=== PATIENT | female | born 1965 | race Caucasian/White ===

== ENCOUNTER 2017-05-22 12:19 | Emergency (ER) | payer MEDICARE ==
[~2017-05-22] VITALS: Ht 154.9 cm; Wt 124.7 kg
[~2017-05-22 12:19] MED LIST: AMITRIPTYLINE 550 MG PO; CELECOXIB200 MG PO; CYCLOBENZAPRINE10 M1; DICLOFENAC 50MG50 MG PO; FLUOXETINE HYDR20 MG PO; HYDROCODONE-APA1 TA1 PO; HYDROXYZINE HYD25 M1; JANUVIA100 MG PO; LEVOTHYROXIN0.125 M1 NG; LYRICA200 MG PO; OTEZLA30 MG PO; PREDNISONE5 MG PO; TIZANIDINE HCL2 MG PO
--- OUTSIDE RECORDS SUMMARY | 2017-05-22 12:34 | External Medical Summary Rpt ---
Author Author [place] [facility] [facility] Address Unknown Phone Unavailable Care Team Providers Care Trolley Car Mechanic Name Role Phone JOSELO SORTO PCP [phone] Encounter TOMAS CARVER [id number] Date(s): 04/28/17 - 04/28/17 [facility] [address] [place] [address]- [phone] Discharge Disposition: OP Self Care or Home Attending Physician: ABHINAV HILL MD-URO Admitting Physician: ABHINAV HILL MD-URO Referring Physician: ABHINAV HILL MD-URO Reason for Visit No data available for this section Vital Signs No data available for this section Problem List Condition Effective Status Health Informant Dates Status ASTHMA(Confi Active rmed) anemia(Confi Active rmed) Arthritis(Co Active nfirmed) b12 Active deficiency(C onfirmed) Back Active problem(Conf irmed) Diabetes Active mellitus(Con firmed) Hypertension Active (Confirmed) Kidney Active stone(Confir med) Neuropathy(C Active onfirmed) Rash(Confirm Active ed) Thyroid Active disease(Conf irmed) Urgency/mild Active incontinence (Confirmed) Urinary Active tract infection(Co nfirmed) Allergies, Adverse Reactions, Alerts Substance Reaction Severity Status morphine Active Medications adalimumab (Humira) 40mg injections one every other week, Refills: 0 albuterol (ProAir HFA) inhaler as needed, Refills: 0 amitriptyline 150mg daily at night, Refills: 0 cyanocobalamin (Vitamin B-12) 1ml 1 time a week, Refills: 0 fluoxetine (Prozac) 60mg daily, Refills: 0 levothyroxine (Synthroid) 1.25 mg daily, Refills: 0 loratadine (Claritin) 10mg daily, Refills: 0 multivitamin one daily, Refills: 0 multivitamin with iron (Iron-150) one 65mg daily, Refills: 0 Non Formulary (Non Formulary Medication) triacimalene niastatin as needed for psorasis, Refills: 0 olmesartan (Benicar) Refills: 0 olmesartan (Benicar) 40mg daily, Refills: 0 omeprazole (Prilosec) 40mg daily, Refills: 0 pimecrolimus topical (Elidel) cream as needed for psorasis, Refills: 0 potassium acetate 65mg daily, Refills: 0 pregabalin (Lyrica) 150mg 2 times a day, Refills: 0 sitagliptin (Januvia) 100mg daily, Refills: 0 Results No data available for this section Immunizations No data available for this section Procedures No data available for this section Social History Social History Response Type Tobacco Years of Use: 35. Packs/Tins Daily: 1. Second Hand Smoke Exposure: No. Smoking Status Current some day smoker Assessment and Plan No data available for this section Hospital Discharge Instructions No data available for this section
--- OUTSIDE RECORDS SUMMARY | 2017-05-22 12:34 | External Medical Summary Rpt | CCD ---
Author Author , ANITA HOWARD Address Unknown Phone [email or web address] Care Team Providers Care Roaster Operator Name Role Phone VEL GUAJARDO, Unavailable Unavailable VEL GUAJARDO J, Unavailable Unavailable Nadeem WARD [facility] Unavailable Unavailable [facility], [facility] AUDRA STONE, Unavailable Unavailable AUDRA STONE Purpose Continuity of Care Document - 10-28-2008 through 2016 Problems Code Diagnosis DOS Provider Status 3829 UNSPECIFIED 12-03-2008 [facility] OTITIS AUDRA Fermin MEDIA 00385 ASTHMA, 12-03-2008 [facility], UNSPECIFIED AUDRA Fermin , UNSPECIFIED STATUS 5198 OTHER 12-03-2008 [facility] DISEASES OF AUDRA Fermin RESPIRATORY SYSTEM NEC 13437 DIAB W/O 11-25-2008 [facility] COMP TYPE AUDRA Fermin II/UNS NOT STATED UNCNTRL 3558 UNSPECIFIED 11-25-2008 AUDRA STONE MONONEURITI S OF LOWER LIMB 7242 LUMBAGO 11-25-2008 AUDRA STONE 7291 UNSPECIFIED 11-25-2008 [facility] MYALGIA AUDRA Fermin AND MYOSITIS 57389 MIGRAINE 11-11-2008 [facility] UNSP W/O VEL Longo INTRACT W/O STATUS MIGRAINOSUS 6961 OTHER 11-11-2008 [facility], PSORIASIS VEL Longo AND SIMILAR DISORDERS 14079 OTHER 11-11-2008 [facility] MALAISE AND VLE Longo FATIGUE 2449 UNSPECIFIED 10-28-2008 [facility] ISM 2724 OTHER AND 10-28-2008 [facility] HYPERLIPIDE LINDA 32987 OTHER 10-28-2008 [facility] INVOL[facility]ING HOSPITAL HEAD AND NECK 48729 ABDOMINAL 10-28-2008 [facility] [place] PAIN OTHER RADIOLOGY SPECIFIED SITE Allergies, Adverse Reactions, Alerts Type Drug Allergy Adverse Reaction to Substance Substance Reaction Severity Morphine Unknown Unknown Medications Na ND Rx Da Fi Fi Am Da Di Ph RX Ph St me C No te ll ll ou ys ag ar # ys at rm s nt no ma ic us Or Da si cy ia de te s n re d AD 49 08 0 No AC 28 -0 EL 10 4- Lo 40 20 ng TD 01 13 er AP 0 Ac ti AL ve LI 00 08 0 No DO 40 -0 CA 94 4- Lo IN 27 20 ng E 90 13 er HC 2 L Ac 1% ti ve AL Vital Signs 03-11-2013 23:16 Name Value Interpretat Reference Comment ion Range Body 98.4 [degF] Temperature BP 75 mm[Hg] Diastolic BP Systolic 149 mm[Hg] Heart 76 /min Rate/Pulse O2% 98 % Respiratory 16 /min Rate 03-11-2013 22:38 Name Value Interpretat Reference Comment ion Range BP 77 mm[Hg] Diastolic BP Systolic 153 mm[Hg] Heart 105 /min Rate/Pulse O2% 99 % Respiratory 20 /min Rate Procedures Procedure DOS Code Location Performer Comment INJECTION J0696 [facility], 9 AUDRA EASTO M M NE SODIUM PER 250 MG GLUC BLD 71750 [facility], GLUC MNTR 9 AUDRA ZHU DEV M M CLEARED FDA SPEC HOME USE HEMOGLOBI [address] FRANCES[place] A1C LIPID [address] PELVIS [address] [facility] W/O [address] [place] [address] MATERIAL GENERAL [address] [place] [address] [facility] [place] ED, ABDOMEN 9 RADIOLOGY J W/O CONTRAST MATERIAL COLLECTIO 60322 [facility] VENOUS [address] [place] [address] VENIPUNCT URE Encounters Encounter Start End Date Code Location Performer Type Date Emergency AN Greenberg MD (ER) 3 22:14 3 23:17 [facility] OFFICE 65305 [facility] ST[facility] OUTPATIEN 9 9 AUDRA Luo VISIT M M 15 MINUTES OFFICE 67939 [facility] 9 AUDRA Luo VISIT M M 10 MINUTES OFFICE 25388 [facility] GUAJ[facility] 9 9 VEL Luo VISIT 10 MINUTES [facility] - 9 9 [facility] T
--- OUTSIDE RECORDS SUMMARY | 2017-05-22 12:34 | External Medical Summary Rpt ---
Author Author TOMAS [facility] Organization [facility] Address Unknown Phone Unavailable Care Team Providers Care Systems Lead Name Role Phone PATIENCEJOSELO LONGO PCP [phone] Encounter TOMAS CARVER [id number] Date(s): 08/17/16 - 10/25/16 [facility] [address] [place] [address]- Discharge Disposition: OP Self Care or Home Attending Physician: JASON MARTINS MD Admitting Physician: JASON MARTINS MD Referring Physician: JASON MARTINS MD Reason for Visit XXXX Vital Signs No data available for this [...] needed for psorasis, Refills: 0 olmesartan (Benicar) 40mg daily, Refills: 0 olmesartan (Benicar) Refills: 0 omeprazole (Prilosec) 40mg daily, Refills: [...]
--- OUTSIDE RECORDS SUMMARY | 2017-05-22 12:34 | External Medical Summary Rpt ---
Author Author [place] [facility] Address Unknown Phone Unavailable Care Team Providers Care Painter Rough Name Role Phone JOSELO SORTO PCP [phone] Encounter TOMAS CARVER [id number] Date(s): 04/28/17 - 04/28/17 [facility] [address] [place] [address]- [phone] Discharge Disposition: OP Self Care or Home [...]
--- OUTSIDE RECORDS SUMMARY | 2017-05-22 12:34 | External Medical Summary Rpt ---
Author Author TOMAS [facility] Organization [facility] Address Unknown Phone Unavailable Care Team Providers Care Per Diem Rn Name Role Phone PATIENCEJOSELO LONGO PCP [phone] Encounter TOMAS CARVER [id number] Date(s): 08/17/16 - 10/25/16 [facility] [address] [place] [address]- [phone] Discharge Disposition: OP Self Care or Home [...]
--- OUTSIDE RECORDS SUMMARY | 2017-05-22 12:34 | External Medical Summary Rpt | CCD ---
Author Author , ANITA HOWARD Address Unknown Phone [email or web address] Care Team Providers Care Storehouse Clerk Name Role Phone VEL GUAJARDO, Unavailable Unavailable VEL GUAJARDO J, Unavailable Unavailable Nadeem WARD [facility] Unavailable Unavailable [facility] AUDRA STONE, Unavailable Unavailable AUDRA STONE Purpose Continuity of Care Document - 10-28-2008 through 2016 Problems Code Diagnosis DOS Provider Status 3829 UNSPECIFIED 12-03-2008 [facility] OTITIS AUDRA Fermin MEDIA 60870 ASTHMA, 12-03-2008 [facility], UNSPECIFIED AUDRA Fermin , UNSPECIFIED STATUS 5198 OTHER 12-03-2008 [facility] DISEASES OF AUDRA Fermin RESPIRATORY SYSTEM NEC 07309 DIAB W/O 11-25-2008 [facility] COMP TYPE AUDRA Fermin II/UNS NOT STATED UNCNTRL 3558 UNSPECIFIED 11-25-2008 AUDRA STONE MONONEURITI S OF LOWER LIMB 7242 LUMBAGO 11-25-2008 AUDRA STONE 7291 UNSPECIFIED 11-25-2008 [facility] MYALGIA AUDRA Fermin AND MYOSITIS 85046 MIGRAINE 11-11-2008 [facility] UNSP W/O VEL Longo INTRACT W/O STATUS MIGRAINOSUS 6961 OTHER 11-11-2008 B[facility]T, PSORIASIS VEL Longo AND SIMILAR DISORDERS 50395 OTHER 11-11-2008 [facility] MALAISE AND VEL Longo FATIGUE 2449 UNSPECIFIED 10-28-2008 [facility] ISM 2724 OTHER AND 10-28-2008 [facility] HYPERLIPIDE LINDA 42379 OTHER 10-28-2008 [facility] HEAD AND NECK 08005 ABDOMINAL 10-28-2008 [facility] [place] PAIN OTHER RADIOLOGY [...] NE SODIUM PER 250 MG GLUC BLD 86664 [facility] STONE, GLUC MNTR 9 AUDRA ZHU DEV M M CLEARED FDA SPEC HOME USE HEMOGLOBI [address] FRANCES[place] A1C LIPID [address] PELVIS [address] [facility] W/O [address] [place] [address] MATERIAL GENERAL [address] [place] [address] [facility] [place] ED, ABDOMEN 9 RADIOLOGY J W/O CONTRAST MATERIAL COLLECTIO 90289 [facility] VENOUS [address] [place] [address] VENIPUNCT URE Encounters Encounter Start End Date Code Location Performer Type Date Emergency AN Greenberg MD (ER) 3 22:14 3 23:17 [facility] OFFICE 64091 [facility] STONE OUTPATIEN 9 9 AUDRA Luo VISIT M M 15 MINUTES OFFICE 83609 [facility] 9 AUDRA Luo VISIT M M 10 MINUTES OFFICE 42539 [facility] 9 9 VEL Luo VISIT 10 MINUTES [facility] [place] - 9 9 [facility] T
--- OUTSIDE RECORDS SUMMARY | 2017-05-22 12:35 | External Medical Summary Rpt | CCD ---
Demographics Preferred Language South [place] Marital Status Unknown Pentecostal Affiliation Unknown Race Unknown Ethnic Group Unknown Author Author , BRIANNA HOWARD Address Unknown Phone Immunization No patient found.
--- OUTSIDE RECORDS SUMMARY | 2017-05-22 12:35 | External Medical Summary Rpt | CCD ---
Author Author , ANITA Brewer ANITA Address Unknown Phone [email or web address] Care Team Providers Care Swinging Cut Off Saw Operator Name Role Phone VEL GUAJARDO, Unavailable Unavailable VEL GUAJARDO J, Unavailable Unavailable Nadeem WARD [facility] Unavailable Unavailable HOSPITAL, [facility] AUDRA STONE, Unavailable Unavailable AUDRA STONE Purpose Continuity of Care Document - 10-28-2008 through 2016 Problems Code Diagnosis DOS Provider Status 3829 UNSPECIFIED 12-03-2008 [facility] OTITIS AUDRA Fermin MEDIA 99927 ASTHMA, 12-03-2008 [facility], UNSPECIFIED AUDRA Fermin , UNSPECIFIED STATUS 5198 OTHER 12-03-2008 [facility] DISEASES OF AUDRA Fermin RESPIRATORY SYSTEM NEC 61801 DIAB W/O 11-25-2008 [facility], COMP TYPE AUDRA Fermin II/UNS NOT STATED UNCNTRL 3558 UNSPECIFIED 11-25-2008 AUDRA STONE MONONEURITI S OF LOWER LIMB 7242 LUMBAGO 11-25-2008 AUDRA STONE 7291 UNSPECIFIED 11-25-2008 [facility] MYALGIA AUDRA Fermin AND MYOSITIS 14581 MIGRAINE 11-11-2008 [facility] UNSP W/O VEL Longo INTRACT W/O STATUS MIGRAINOSUS 6961 OTHER 11-11-2008 [facility] PSORIASIS VEL Longo AND SIMILAR DISORDERS 01339 OTHER 11-11-2008 [facility] MALAISE AND VEL Longo FATIGUE 2449 UNSPECIFIED 10-28-2008 [facility] ISM 2724 OTHER AND 10-28-2008 [facility] HYPERLIPIDE LINDA 83791 OTHER 10-28-2008 [facility]OSPITAL HEAD AND NECK 29562 ABDOMINAL 10-28-2008 [facility] [place] PAIN OTHER RADIOLOGY SPECIFIED SITE Procedures Procedure DOS Code Location Performer Comment INJECTION J0696 [facility], 9 AUDRA Fermin M NE SODIUM PER 250 MG GLUC BLD 32553 [facility], GLUC MNTR 9 AUDRA ZHU DEV M M CLEARED FDA SPEC HOME USE HEMOGLOBI [address] [place] [address] PELVIS [address] [facility] RAHUL WARD, W/O RADIOLOGY J CONTRAST MATERIAL GENERAL [address] LIPID [address] [facility] PANEL [address] [place] [address] COLLECTIO 36991 [facility] VENOUS 9 [facility] [place] [address] [facility] ABDOMEN [address] [place] [address] W/O [facility] CONTRAST MATERIAL Encounters Encounter Start End Date Code Location Performer Type Date OFFICE 90947 [facility] OUTPATIEN 9 9 AUDRA Luo VISIT M M 15 MINUTES OFFICE 03716 [facility] OUTPATIEN 9 9 AUDRA Luo VISIT M M 10 MINUTES OFFICE 49231 [facility] GUAJARDO OUTPATIEN 9 9 VEL Luo VISIT 10 MIN[address]ES [address] [address]
--- OUTSIDE RECORDS SUMMARY | 2017-05-22 12:35 | External Medical Summary Rpt | CCD ---
Author Author , ANITA Brewer ANITA Address Unknown Phone [email or web address] Team Providers Care Kardex Clerk Name Role Phone VEL GUAJARDO, Unavailable Unavailable VEL GUAJARDO J, Unavailable Unavailable Nadeem WARD [facility] Unavailable Unavailable [facility], [facility] AUDRA STONE, Unavailable Unavailable AUDRA STONE Purpose Continuity of Care Document - 10-28-2008 through 2016 Problems Code Diagnosis DOS Provider Status 3829 UNSPECIFIED 12-03-2008 [facility] OTITIS AUDRA Fermin MEDIA 75119 ASTHMA, 12-03-2008 [facility], UNSPECIFIED AUDRA Fermin , UNSPECIFIED STATUS 5198 OTHER 12-03-2008 [facility] DISEASES OF AUDRA Fermin RESPIRATORY SYSTEM NEC 61067 DIAB W/O 11-25-2008 [facility], COMP TYPE AUDRA Fermin II/UNS NOT STATED UNCNTRL 3558 UNSPECIFIED 11-25-2008 AUDRA STONE MONONEURITI S OF LOWER LIMB 7242 LUMBAGO 11-25-2008 AUDRA STONE 7291 UNSPECIFIED 11-25-2008 [facility] MYALGIA AUDRA Fermin AND MYOSITIS 37234 MIGRAINE 11-11-2008 [facility] UNSP W/O VEL Longo INTRACT W/O STATUS MIGRAINOSUS 6961 OTHER 11-11-2008 [facility] PSORIASIS VEL Longo AND SIMILAR DISORDERS 11523 OTHER 11-11-2008 [facility] MALAISE AND VEL Longo FATIGUE 2449 UNSPECIFIED 10-28-2008 [facility] ISM 2724 OTHER AND 10-28-2008 [facility] HYPERLIPIDE LINDA 03328 OTHER 10-28-2008 [facility] HOSPITAL HEAD AND NECK 95526 ABDOMINAL 10-28-2008 [facility] [place] PAIN OTHER RADIOLOGY SPECIFIED SITE Procedures Procedure DOS Code Location Performer Comment INJECTION J0696 [facility] STONE, 9 AURDA Fermin M NE SODIUM PER 250 MG GLUC BLD 24344 [facility] STONE, GLUC MNTR 9 AUDRA ZHU DEV M M CLEARED FDA SPEC HOME USE HEMOGLOBI [address] [address] PELVIS [address] [facility] RAHUL WARD, W/O RADIOLOGY J CONTRAST MATERIAL GENERAL [address] LIPID [address] [facility] PANEL [address] [place] [address] COLLECTIO 24920 [facility] VENOUS [facility] [place] [address] [facility] ABDOMEN [address] [place] [address] W/O [facility] CONTRAST MATERIAL Encounters Encounter Start End Date Code Location Performer Type Date OFFICE 02091 [facility] OUTPATIEN 9 9 AUDRA Luo VISIT M M 15 MINUTES OFFICE 74581 [facility] OUT[facility]IEN 9 9 AUDRA Luo VISIT M M 10 MINUTES OFFICE 43523 [facility] GUAJARDO OUTPATIEN 9 9 VEL Luo VISIT [address]
--- OUTSIDE RECORDS SUMMARY | 2017-05-22 12:35 | External Medical Summary Rpt ---
Author Author ANITA Pugh, [employer] Organization [employer] Address Unknown Phone Unavailable
--- OUTSIDE RECORDS SUMMARY | 2017-05-22 12:35 | External Medical Summary Rpt | CCD ---
Demographics Preferred Language Swiss Marital Status Unknown Jainism Affiliation Unknown Race Unknown Ethnic Group Unknown Author Author , BRIANNA HOWARD Address Unknown Phone Immunization No patient found.
[2017-05-22] MEDS ORDERED: AUGMENTIN 875-1 EACH PO (12:50)
[2017-05-22] MEDS ORDERED: PREDNISONE 20MG20 MG PO (12:50)
--- NOTE | 2017-05-22 12:50 | Urgent Treatment Center Report ---
History of Present Issue Date/Time Seen by Provider 05/22/17 1238 Visit Reason Pt arrived:Walked Presenting Problem:PT C/O RIGHT EAR PAIN THAT HAS BEEN ONGOING SINCE SHE WAS SICK LAST WEEKEDN Location if Accident: Onset of symptoms date/time:/ or onset unknown for:MEDICAL HX UNKNOWN Have you (or family members/close friends) recently traveled outside the [place]? N If Yes, where/when: Have you had exposure to infectious disease within the past month? TB? Other? Specify: Source patient, RN notes reviewed Exam Limitations no limitations Comment Patient has had right ear pain for over a week. She states that she has had sinus congestion and pressure for over a month that she just can't shake. Has recently switched to Claritin-D and Flonase instead of plain Claritin. Had a severe sore throat last week and took a Z-Pack that she had. Throat is better but ear is still very painful. [place] and felt like her ear drum would rupture. Patient has psoriasis, but hasn't taken her Embrel for 5-6 weeks due to congestion/drainage. Patient has Type 2 diabetes, but states sugar is well controlled and PCP has actually taken away some meds because she is doing well and doing weight watchers. ALLERGIES Coded Allergies: morphine (Intermediate, HALLUCINATIONS 03/17/16) Home Medications Active Scripts HYDROCODONE 5MG/APAP 325MG (Hydrocodon-Acetaminophen 5-325) 1 TAB PO Q6 PRN PAIN #5 TAB Prov: 07/19/15 Prednisone 5 MG PO DIRECTED #39 TAB Prov: 12/13/15 DICLOFENAC SODIUM (Diclofenac 50MG) 50 MG PO BID #60 TAB Prov: 12/13/15 Reported Medications HYDROXYZINE HCL (Hydroxyzine Hydrochloride) Amitriptyline Hcl (Amitriptyline) 50 MG PO QHS #30 FLUOXETINE HCL (Fluoxetine Hydrochloride) 20 MG PO DAILY #90 Levothyroxine Sodium 0.125 MG NG DAILY #30 APREMILAST (Otezla) 30 MG PO BID #60 Sitagliptin Phosphate (Januvia 100MG) 100 MG PO DAILY #30 Pregabalin (Lyrica 200MG) 200 MG PO QHS #60 Tizanidine Hydrochloride (Tizanidine Hcl) 2 MG PO BID PRN SPASMS History Medical History General CAD? No Angina: No CO: No Hypertension? Yes Hyperlipidemia? No CHF? No DVT? No PE? No COPD? No Asthma? Yes Anemia? Yes GERD? No Gastric ulcers? No GI Bleed? No Hernia? No Thyroid Problems? No Hypothyroidism? Yes CVA? No Seizures? No Diabetes? Yes Insulin Dependent: No Insulin Pump: No Home FSBS? Yes Renal Insuffiency? No UTI? No Stones? No BPH? No GB Disease: No Nephritic Syndrome? No Asplenia? No Hepatitis? No Sickle Cell Disease? No Arthritis? Yes Migraines? No Cataracts? No Glaucoma? No MRSA? No HIV? No TB? No Anxiety? Yes Depression? Yes Cancer? No Site: PSORIASIS More? No Immunization HX DT/Tetanus 5-10 YRS Surgical Hx Previous Surgery?Y HYSTERECTOMY GASTRIC BYPASS GALLBLADDER KIDNEY STONES REMOVED KNEE REPLACEMENT X 2 HEEL SPUR Social History Smoking Hx Smoker: Current Every Day Smoker Tobacco: Yes Type Cigarettes Packs/day < 1 Pack Alcohol Alcohol: No Review of Systems All Other Systems Reviewed and Negative ENT see HPI, ear pain, nose congestion, throat pain. Physical Exam Vital Signs Vital Signs Date Time Temp Pulse Resp B/P Pulse O2 O2 Flow FiO2 Ox Delivery Rate 05/22 1225 98.1 89 16 116/80 98 General Appearance normal appearance, no apparent distress Ear, Nose, Throat hearing grossly normal, abnormal TM (R) Respiratory Status No: respiratory distress, trachea midline, chest symmetrical. Lung Sounds bilateral: normal breath sounds, lungs clear. Cardiovascular normal exam, regular rate/rhythm, no peripheral edema, no gallop, no JVD, no murmur, no rub Extremities non-tender, normal range of motion, normal inspection, normal capillary refill Neurologic alert, normal exam, oriented x 3 Mental status normal mood/affect Skin intact, normal color, warm/dry, psoriasis Medical Decision Making LABS/Meds/Orders Pt receiving controlled substance in ED? No Departure Departure Time of Disposition 1246 Disposition DC Home or Self Care(routine) Clinical Impression Primary Impression: Otitis media Qualifiers: Otitis media type: suppurative Chronicity: acute Laterality: right Recurrence: recurrent Spontaneous tympanic membrane rupture: without spontaneous rupture Qualified Code: H66.004 - Acute suppurative otitis media without spontaneous rupture of ear drum, recurrent, right ear Condition STABLE Referrals ELIEZER SORTO (Family) Patient Instructions DI for Otitis Media (Middle Ear Infection)-Child Additional Instructions Short course prednisone burst - patient has done this before and sugar did okay. F/U with PCP if not improving. Discharge Counseling Counseled pt/family regarding diagnosis, medications/RX, home care, follow up needs Prescriptions Current Visit Scripts Amoxicillin/Potassium Clav (Augmentin 605-125 Tablet) 1 EACH PO BID #20 TAB Prednisone (Prednisone 20MG) 20 MG PO BID #10 TAB at 1250
[2017-05-22 13:02] VITALS: BP 116/80
== END 2017-05-22 13:02 | disposition home or self-care (01) ==
LOC: UTC 12:19
DX: H66.004 Acute suppurative otitis media without spontaneous rupture of ear drum, recurrent, right ear (principal); F17.210 Nicotine dependence, cigarettes, uncomplicated; E11.9 Type 2 diabetes mellitus without complications; D64.9 Anemia, unspecified; I10 Essential (primary) hypertension; Z88.6 Allergy status to analgesic agent